=== PATIENT | female | born 2000 | race Caucasian/White ===

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

== ENCOUNTER → 2023-11-20 11:06 | Outpatient (BNVA) | payer MEDICAID, SELFPAY | PROVIDERS: Family Provider Nurse Practitioner Family; PCP Nurse Practitioner Family; Visit Provider Nurse Practitioner Women's Health | DX: Z30.9 Encounter for contraceptive management, unspecified (principal); Z30.017 Encounter for initial prescription of implantable subdermal contraceptive | CPT/HCPCS: 81025 ==

== ENCOUNTER → 2024-08-07 10:08 | Outpatient (BNVA) | payer MEDICAID, SELFPAY | PROVIDERS: Family Provider Nurse Practitioner Family; PCP Nurse Practitioner Family; Referring Provider Nurse Practitioner Family; Visit Provider Internal Medicine | DX: E06.3 Autoimmune thyroiditis (principal); R53.83 Other fatigue; E04.1 Nontoxic single thyroid nodule | CPT/HCPCS: 99204 ==

== ENCOUNTER 2024-08-29 12:24 | Outpatient (CLI) | payer MEDICAID, SELFPAY ==
--- NOTE | 2024-08-29 12:15 | US_ITS ---
WS: [id number] THYROID ULTRASOUND HISTORY: E04.1 - Nontoxic single thyroid nodule COMPARISON: None available. Right lobe: 0.9 cm x 1.5 cm x 4.1 cm (w x ap x l). Volume: 2.6 cm3. Normal sized gland with scattered small colloid cysts. No dominant mass or echogenic foci. Left lobe: 1.7 cm x 1.9 cm x 4.7 cm (w x ap x l). Volume: 7.2 cm3. Enlarged heterogeneous gland. Nearly isoechoic nodule in the central gland measures 1.2 x 1.8 x 1.8 cm. Mild increased vascularity throughout. This nodule is isoechoic to the normal gland and several cystic structures scattered throughout. No echogenic foci. Isthmus: 0.3 cm. US/US thyroid [id number] IMPRESSION: TI-RADS 2; LEFT thyroid nodule.
== END 2024-08-29 12:25 | disposition home or self-care (01) ==
PROVIDERS: Family Provider Nurse Practitioner Family; PCP Nurse Practitioner Family; Visit Provider Internal Medicine
DX: E04.1 Nontoxic single thyroid nodule (principal); E06.3 Autoimmune thyroiditis
CPT/HCPCS: 76536

== ENCOUNTER 2024-11-06 13:55 | Outpatient (CLI) | payer MEDICAID, SELFPAY ==
--- NOTE | 2024-11-06 14:15 | US_ITS ---
WS: [id number] ULTRASOUND-GUIDED LEFT THYROID NODULE FNA HISTORY: LEFT thyroid nodule. Procedure, risks, and complications were explained to the patient. Consent has been obtained. Comparison: 08/29/2024 The skin is cleansed with ChloraPrep and anesthetized with 1% buffered lidocaine. FNA performed with 25 LEFT gauge needles. arrt technologist is present to fix slides. US/US biopsy/FNA thyroid [id number] IMPRESSION: Uncomplicated FNA of a LEFT thyroid nodule. Final pathology results pending.
== END 2024-11-06 13:56 | disposition home or self-care (01) ==
LOC: RAD 13:58
PROVIDERS: Family Provider Nurse Practitioner Family; PCP Nurse Practitioner Family; Visit Provider Internal Medicine
DX: E04.1 Nontoxic single thyroid nodule (principal); R53.83 Other fatigue; E06.3 Autoimmune thyroiditis
CPT/HCPCS: 10005; 88173

== ENCOUNTER → 2025-01-01 15:57 | Outpatient (BNVA) | payer MEDICAID, SELFPAY | PROVIDERS: Family Provider Nurse Practitioner Family; PCP Nurse Practitioner Family; Visit Provider Nurse Practitioner Women's Health | DX: Z12.4 Encounter for screening for malignant neoplasm of cervix (principal) | CPT/HCPCS: 87624 ==

== ENCOUNTER 2025-01-15 12:59 | Outpatient (CLI) | payer MEDICAID, SELFPAY ==
--- NOTE | 2025-01-15 13:15 | USR_ITS ---
PROCEDURE INFORMATION: Exam: US Pelvis, Complete, Non-Obstetric Exam date and time: 01/15/2025 1:43 PM Age: 25 years old Clinical indication: Condition or disease; Ovarian conditions; Type of cyst not specified; Additional info: N83.209 - unspecified ovarian cyst, unspecified side TECHNIQUE: Imaging protocol: Transabdominal pelvic nonobstetric ultrasound. Complete exam. Real time ultrasound with image documentation. COMPARISON: No relevant prior studies available. FINDINGS: Uterus: Uterus is normal. Endometrial stripe is normal. Right ovary/adnexa: Ovary is normal. No mass. Normal blood flow. Left ovary/adnexa: Slightly complex left ovarian cyst measuring 3.1 x 2.6 x 2.2 cm in size. Follow-up as clinically indicated. No mass. Normal blood flow. Intraperitoneal space: No intraperitoneal fluid. Urinary bladder: Normal. US/US pelv w/transvag [id number] IMPRESSION: 3.1 cm slightly complex left ovarian cyst.
== END 2025-01-15 13:00 | disposition home or self-care (01) ==
LOC: RAD 13:00
PROVIDERS: Family Provider Nurse Practitioner Family; PCP Nurse Practitioner Family; Visit Provider Nurse Practitioner Women's Health
DX: N83.202 Unspecified ovarian cyst, left side (principal)
CPT/HCPCS: 76830; 76856